=== PATIENT | male | born 1960 | race Caucasian/White ===

== ENCOUNTER 2018-12-17 16:03 | Inpatient (IN) ==
[2018-12-17] MEDS ORDERED: Fluticasone Propionate Nasal 50 MCG/SPRAY BOTTLE NS PRN (16:19)
[2018-12-17] MEDS ORDERED: Nitroglycerin 0.4 MG TAB.SUBL SL PRN (16:19)
[2018-12-17] MEDS ORDERED: NON-FORMULARY MEDICATION 1 EACH EACH (Naproxen Sodium [Aleve] 220 MG) PO PRN (16:19)
[2018-12-17] MEDS ORDERED: Dextrose Gel 15 GM/37.5 ML TUBE PO PRN ×2 (16:42)
[2018-12-17] MEDS ORDERED: D5% in Water 1,000 ML IVC PRN (16:42)
[2018-12-17] MEDS ORDERED: *HR* Dextrose 50 % in Water (Syg) 50 ML SYRINGE IVP PRN (16:42)
[2018-12-17] MEDS ORDERED: Insulin LISPRO 300 UNITS/3 ML VIAL SQ SCH (17:00)
[2018-12-17] MEDS: Furosemide 40 MG TABLET PO SCH (17:47)
[2018-12-17] MEDS: *HR* Metformin 500 MG TABLET PO SCH (17:47)
[2018-12-17] MEDS: Melatonin 3 MG TABLET PO SCH (20:39)
[2018-12-17] MEDS: Apixaban 5 MG TABLET PO SCH (20:39)
[2018-12-17] MEDS: Niacin (24 HR) 500 MG TAB.ER.24H PO SCH (20:39)
[2018-12-17] MEDS: Magnesium Oxide 400 MG TABLET PO SCH (20:39)
[2018-12-17] MEDS: Gabapentin 300 MG CAPSULE PO SCH (20:40)
[2018-12-17] MEDS: Insulin LISPRO 300 UNITS/3 ML VIAL SQ SCH (20:41)
[2018-12-17] MEDS: Silver Sulfadiazine 50 GM TUBE TP SCH (20:42)
[2018-12-17] MEDS ORDERED: Insulin DETEMIR 100 UNIT/ML per UNIT SQ ONE (20:47)
[2018-12-17] MEDS: Insulin DETEMIR 100 UNIT/ML X5UNITS SQ SCH (20:49)
[2018-12-17] MEDS ORDERED: INSULIN DETEMIR 70 UNIT SQ SCH (21:00)
[2018-12-17] MEDS ORDERED: NON-FORMULARY MEDICATION 1 EACH EACH (Omega-3 Acid Ethyl Esters [Lovaza] 2 GM) PO SCH (21:00)
[2018-12-17] MEDS ORDERED: INSULIN DETEMIR 35 UNIT SQ SCH (21:00)
[2018-12-17] MEDS: Budesonide/Formoterol 80/4.5 MDI IH SCH (21:55)
[2018-12-18 06:43] LABS: Basophils % 0.2 %; Eosinophils # 0.2 K/mcL (0.0-0.6); Eosinophils % 1.6 %; Hematocrit 43.8 % (37.5-50.1); Hemoglobin 14.6 g/dL (12.9-16.9); Lymphocytes # 2.8 K/mcL (0.6-4.6); Mean Corpuscular HGB Conc 33.3 g/dL (31.6-35.5); Mean Corpuscular Hemoglobin 29.9 pg (28.0-33.3); Mean Corpuscular Volume 89.8 fL (83.0-100.0); Mean Platelet Volume 11.5 fL (9.4-12.4); Monocytes # 0.9 K/mcL (0.0-1.3); Monocytes % 7.7 %; Platelet Count 224 K/mcL (140-400); Red Blood Count 4.88 M/mcL (4.19-5.50); Red Cell Distribution Width 14.4 % (11.5-14.5); Segmented Neutrophils % 66.5 %
[2018-12-18 07:01] LABS: INR 1.3; Prothrombin Time 14.1 Seconds (9.4-12.1)
[2018-12-18 07:09] LABS: BUN/Creatinine Ratio 40 (6-26); Blood Urea Nitrogen 36 mg/dL (6-20); Calcium 9.4 mg/dL (8.6-10.3); Carbon Dioxide 26 mEq/L (23-29); Chloride 101 mEq/L (98-107); Glucose 136 mg/dL (70-105); Osmolality,Calculated 294 (280-300); Potassium 3.2 mEq/L (3.5-5.1); Sodium 137 mEq/L (136-145); eGFR For Non-African Americans > 60 (> 60)
[2018-12-18 07:21] LABS: Neutrophils # 8.1 K/mcL (1.6-8.9)
[2018-12-18] MEDS: Insulin DETEMIR 100 UNIT/ML X5UNITS SQ SCH ×2 (08:53→21:04)
[2018-12-18] MEDS: Cyanocobalamin (B-12) 1,000 MCG TABLET PO SCH (08:55)
[2018-12-18] MEDS: Lisinopril 20 MG TABLET PO SCH (08:55)
[2018-12-18] MEDS: Magnesium Oxide 400 MG TABLET PO SCH ×2 (08:56→20:35)
[2018-12-18] MEDS: Aspirin Enteric Coated 81 MG Tablet PO SCH (08:56)
[2018-12-18] MEDS: Gabapentin 300 MG CAPSULE PO SCH ×3 (08:56→20:35)
[2018-12-18] MEDS: *HR* Metformin 500 MG TABLET PO SCH ×2 (08:56→17:15)
[2018-12-18] MEDS: Apixaban 5 MG TABLET PO SCH ×2 (08:56→20:35)
[2018-12-18] MEDS: Furosemide 40 MG TABLET PO SCH ×2 (08:56→17:16)
[2018-12-18] MEDS: (Canagliflozin [Invokana] 300 MG) PO SCH (08:57)
[2018-12-18] MEDS: Silver Sulfadiazine 50 GM TUBE TP SCH ×2 (08:57→21:39)
[2018-12-18] MEDS: Insulin LISPRO 300 UNITS/3 ML VIAL SQ SCH ×4 (08:57→21:05)
[2018-12-18] MEDS ORDERED: hydroCHLOROthiazide 25 MG TABLET PO SCH (09:00)
[2018-12-18] MEDS ORDERED: Apixaban 5 MG TABLET PO SCH (09:00)
[2018-12-18] MEDS ORDERED: NON-FORMULARY MEDICATION 1 EACH EACH (Umeclidinium Bromide [Incruse Ellipta] 1 PUFF) IH SCH (09:00)
[2018-12-18] MEDS ORDERED: predniSONE 20 MG TABLET PO SCH (09:00)
[2018-12-18] MEDS: Budesonide/Formoterol 80/4.5 MDI IH SCH ×2 (09:08→21:29)
--- NOTE | 2018-12-18 12:39 | Internal Med History&Physical ---
Date of Encounter: 12/18/18 Time of Encounter: 12:00 Assessment and Plan (1) Community acquired pneumonia Current visit: No Status: Acute Not presently on antibiotics. WBC today slightly elevated at 12.1. No left shift is seen. Will monitor labs and vitals. Qualifiers: Laterality: right Lung location: lower lobe of lung Qualified Code(s): J18.1 - Lobar pneumonia, unspecified organism (2) CVA (cerebral vascular accident) Current visit: No Status: Acute Multifocal on MRI of brain. Head CTA 12/14/2018 was unremarkable. Continue Eliquis, aspirin, Lipitor and Plavix. PT and OT evaluations have been ordered. Qualifiers: CVA mechanism: unspecified Qualified Code(s): I63.9 - Cerebral infarction, unspecified (3) Diabetes mellitus Current visit: No Status: Chronic Hemoglobin A1c was 9.7% on 12/14/2018. Continue Levemir, Glucophage, and Accu- Cheks with SSI. Qualifiers: Diabetes mellitus type: type 2 Diabetes mellitus medical terminologist insulin use: with medical terminologist use Diabetes mellitus complication status: with unspecified complications Qualified Code(s): E11.8 - Type 2 diabetes mellitus with unspecified complications; Z79.4 - intermodal dispatcher (current) use of insulin (4) NORA (obstructive sleep apnea) Current visit: No Status: Chronic Continue CPAP at bedtime (5) PAF (paroxysmal atrial fibrillation) Current visit: No Status: Chronic Continue Eliquis and Lopressor. (6) Hypertension Current visit: No Status: Chronic Continue HCTZ but decrease dose to avoid worsening azotemia and hypokalemia. Continue lisinopril and Lopressor. Qualifiers: Hypertension type: essential hypertension Qualified Code(s): I10 - Essential (primary) hypertension (7) Hypokalemia Current visit: No Status: Acute Decrease HCTZ and give supplemental potassium. (8) Weakness Current visit: No Status: Acute PT and OT evaluations have been ordered. (9) Chronic diastolic (congestive) heart failure Current visit: No Status: Acute Continue Lasix, lisinopril, and Lopressor. Internal Medicine - H&P: HPI Chief complaint: Pneumonia, stroke Admitted From: Emergency Dept Plans for Post Hospital Care: Home History of present illness: Mr. Hoyt is a 58 year old male who was hospitalized at [facility] December 08 with right lung pneumonia and possible small parapneumonic effusion. He was treated during hospitalization with Rocephin and steroids. He was discharged on Levaquin and Zithromax with steroids. He was admitted again at [facility] December 14 after presenting with neurodeficits. Brain MRI showed small acute infarcts in the right cerebellum, right mesial temporal lobe, right hippocampus, right posterior insular cortex, and bilateral periventricular white matter and centrum semiovale. Consideration of embolic etiology was recommended. He was stabilized and discharged to [facility] swing bed for ongoing care needs. He denies documented previous strokes. He states he noticed slight drooling from his left mouth margin approximately 6 months ago. He denies seizures. Cardiovascular history is significant for hypertension and paroxysmal atrial fibrillation. He has been on Eliquis for over 2 years. He had congenital bicuspid aortic valve and underwent bioprosthetic AVR 2010. Heart cath 12/07/2017 showed no CAD. Echocardiogram 12/08/2018 showed LVEF of 60%. Interventricular septum and posterior wall thickness measurements were slightly elevated at 1.20 cm each. The estimated RVSP was elevated at 65 mmHg. There was [id number] aortic regurgitation, unable to determine if valvular or perivalvular. There was mild tricuspid regurgitation. He denies DVT or pulmonary embolus. Respiratory history is significant for having smoked from age [age] up to 3-1/2 packs per day. He reports PFTs done several years ago showed COPD. He uses oxygen at home. He has NORA and uses CPAP at bedtime. He reports spontaneous pneumothorax several years ago requiring surgical intervention. Past Med Surg Social Fam HX - Past Medical History Medical history: atrial fibrillation, CHF, COPD, CVA, diabetes, hyperlipidemia, hypertension, valvular heart disease, other Additional medical history: pneumothorax Psychiatric history: depression - Past Surgical History Surgical History: heart valve replacement, other Additional surgical history: chest tube - Social History Smoking Status: Never smoker Smokeless Tobacco Status: No Alcohol use: heavy Drug use: none - Family History Mother Living Status: Still Living Hx Family Cardiac Disorders: Yes (htn) Hx Family Endocrine Disorder: Yes (DM) Father Hx Family Respiratory Disorders: Yes Hx Family Endocrine Disorder: Yes (DM) Maternal Grandmother Living Status: Hx Family Cardiac Disorders: No Hx Family Cancer: No Hx Family Endocrine Disorder: Yes (DM) Internal Medicine - H&P: Meds Nitroglycerin [Nitrostat] 0.4 mg SL Q5M PRN 09/23/16 [History] Canagliflozin [Invokana] 300 mg PO DAILY #30 tablet 12/10/17 [Rx] Cyanocobalamin (Vitamin B-12) [Vitamin B12] 1,000 mcg PO DAILY #30 tablet 12/10/17 [Rx] Dulaglutide [Trulicity] 0.75 mg SQ MO #1 pen.injctr 12/10/17 [Rx] Fluticasone Propionate Nasal [Flonase] 1 spray NS DAILY PRN #1 bottle 12/10/17 [Rx] Furosemide [Lasix] 40 mg PO BID #60 tablet 12/10/17 [Rx] Lisinopril [Zestril] 20 mg PO DAILY #30 tablet 12/10/17 [Rx] Magnesium Oxide [Magnesium] 400 mg PO BID #60 tablet 12/10/17 [Rx] Metoprolol [Lopressor] 50 mg PO BID #60 tablet 12/10/17 [Rx] Niacin (24 HR) [Niaspan] 500 mg PO HS #30 tab.er.24h 12/10/17 [Rx] Chrisman-3 Acid Ethyl Esters [Lovaza] 2 gm PO BID #120 capsule 12/10/17 [Rx] Tamsulosin [Flomax] 0.4 mg PO BID #30 capsule 12/10/17 [Rx] Insulin ASPART [Novolog Flexpen] 20 unit SQ TIDWM MDD plus sliding scale ( max 65u) 02/25/18 [History] Acetaminophen [Tylenol] 1,000 mg PO HS PRN 12/08/18 [History] Albuterol Sulfate [Ventolin Hfa] 2 puff IH Q4H PRN 12/08/18 [History] Aspirin [Lo-Dose Aspirin EC] 81 mg PO DAILY 12/08/18 [History] Gabapentin [Neurontin] 300 mg PO TID 12/08/18 [History] Melatonin [Melatin] 6 mg PO HS 12/08/18 [History] Umeclidinium Howell [Incruse Ellipta] 1 puff IH DAILY 12/08/18 [History] PredniSONE [Deltasone] 40 mg PO DAILY #1 tablet 12/12/18 [Rx] Apixaban [Eliquis] 5 mg PO DAILY 12/15/18 [History] Clopidogrel [Plavix] 75 mg PO DAILY 12/15/18 [History] Duloxetine HCl 40 mg PO DAILY 12/15/18 [History] Fluticasone/Salmeterol [Advair 250-50 Diskus] 1 puff PO BID 12/15/18 [History] Gemfibrozil [Lopid] 600 mg PO BID 12/15/18 [History] Metformin HCl 1,000 mg PO BIDWM 12/15/18 [History] Naproxen Sodium [Aleve] 220 mg PO Q12H PRN 12/15/18 [History] Omeprazole [PriLOSEC] 40 mg PO DAILY 12/15/18 [History] Polyethylene Glycol 3350 17 gm PO DAILY PRN 12/15/18 [History] Potassium Chloride [Klor-Con 10] 10 meq PO DAILY 12/15/18 [History] Silver Sulfadiazine 1 appl TP BID 12/15/18 [History] Atorvastatin [Lipitor] 40 mg PO HS tablet 12/17/18 [Rx] Insulin DETEMIR [Levemir Flextouch] 70 unit SQ BID #0 12/17/18 [Rx] hydroCHLOROthiazide [Hydrochlorothiazide] 25 mg PO DAILY tablet 12/17/18 [Rx] Allergy/AdvReac Type Severity Reaction Status Date / Time No Known Allergies Allergy Verified 12/08/18 14:58 All Systems PM: A 10-system review of systems was performed and is negative for pertinent findings except as documented above in the HPI. Review of systems: Gen.: His weight has been stable at approximately 89 kg since January 2018 [facility]. He reports he lost 100 pounds in the past 3 years. Cardiovascular: As per history of present illness Respiratory: As per history of present illness GI: He has GERD. He denies disorders of his liver gallbladder or exocrine pancreas : He has BPH. He denies disorders of his kidney or bladder otherwise Neurologic: As per history of present illness Endocrine: He was diagnosed with DM 2 approximately 2001. Hemoglobin A1c was 9.7% on 12/14/2018. He denies known thyroid disease. He has hyperlipidemia. Hematology/oncology: He denies blood disorders cancers or anemia Psychiatric: He has depression but denies anxiety or other mental health issues. [place] skeletal: He has DJD but denies gout or other bone joint or muscle disorders. - Constitutional Vitals: Temp Pulse Resp BP Pulse Ox 97.4 F L 64 18 127/53 97 12/18/18 06:58 12/18/18 06:58 12/18/18 09:09 12/18/18 06:58 12/18/18 09:09 Exam: Gen.: He is a well-developed well-nourished male sitting comfortably on the side of bed who appears in no acute distress HEENT: Head is atraumatic and normal cephalic. Eyes: EOMI. There is no scleral icterus. Mouth: Mucosa is moist. Neck: Supple and nontender. There is no thyromegaly or adenopathy noted. Heart: Regular without murmurs gallops or ectopics Lungs: No wheezes or crackles are heard. Abdomen: Soft and nontender. No masses or guarding are noted. Extremities: He has chronic venous stasis pigmentation changes of his lower legs bilaterally. Dorsalis pedis and posttibial pulses are trace palpable bilaterally. There is no cyanosis edema or clubbing noted. Neurologic: Mental status: He is talkative and a fair to good historian. He does not remember some details of his past history. Cranial nerves: Smile is symmetric. Forehead wrinkles bilaterally. Tongue protrudes midline. EOMI. Motor: There is no pronator drift. Cerebellar: Finger to nose is intact bilaterally. Skin: Warm and dry Internal Med - H&P Results - Labs CBC & Chem 7: 12/18/18 06:00 12/18/18 06:00 Labs: Short CBC 12/18/18 Range/Units 06:00 WBC 12.1 H (4.3-11.1) K/mcL Hgb 14.6 (12.9-16.9) g/dL Hct 43.8 (37.5-50.1) % Plt Count 224 (140-400) K/mcL Neutrophils # 8.1 (1.6-8.9) K/mcL BMP 12/18/18 06:00 Sodium 137 Potassium 3.2 L Chloride 101 Carbon Dioxide 26 BUN 36 H Creatinine 0.90 Glucose 136 H Calcium 9.4
[2018-12-18] MEDS: Melatonin 3 MG TABLET PO SCH (20:36)
[2018-12-18] MEDS: Niacin (24 HR) 500 MG TAB.ER.24H PO SCH (21:04)
[2018-12-19 05:44] LABS: Basophils # 0.1 K/mcL (0.0-0.2); Basophils % 0.4 %; Eosinophils % 1.8 %; Hematocrit 43.6 % (37.5-50.1); Hemoglobin 14.7 g/dL (12.9-16.9); Lymphocytes # 2.7 K/mcL (0.6-4.6); Lymphocytes % 19.7 %; Mean Corpuscular HGB Conc 33.7 g/dL (31.6-35.5); Mean Corpuscular Hemoglobin 30.1 pg (28.0-33.3); Mean Corpuscular Volume 89.3 fL (83.0-100.0); Mean Platelet Volume 11.1 fL (9.4-12.4); Monocytes % 6.9 %; Neutrophils # 9.6 K/mcL (1.6-8.9); Platelet Count 223 K/mcL (140-400); Red Blood Count 4.88 M/mcL (4.19-5.50); Segmented Neutrophils % 70.2 %
[2018-12-19 05:50] LABS: Eosinophils # 0.3 K/mcL (0.0-0.6)
[2018-12-19 06:04] LABS: BUN/Creatinine Ratio 46 (6-26); Blood Urea Nitrogen 39 mg/dL (6-20); Calcium 9.3 mg/dL (8.6-10.3); Carbon Dioxide 25 mEq/L (23-29); Chloride 101 mEq/L (98-107); Chol/HDL Ratio 3.3 (0-4.9); Cholesterol 127 mg/dL (< 200); Glucose 150 mg/dL (70-105); HDL Cholesterol 38 mg/dL (40-59); LDL Cholesterol,Calculated 55 mg/dL (0-99); Osmolality,Calculated 294 (280-300); Potassium 3.7 mEq/L (3.5-5.1); Sodium 136 mEq/L (136-145); Triglycerides 169 mg/dL (< 150); eGFR For Non-African Americans > 60 (> 60)
[2018-12-19] MEDS: Gabapentin 300 MG CAPSULE PO SCH ×3 (08:19→21:39)
[2018-12-19] MEDS: Lisinopril 20 MG TABLET PO SCH (08:19)
[2018-12-19] MEDS: Cyanocobalamin (B-12) 1,000 MCG TABLET PO SCH (08:19)
[2018-12-19] MEDS: hydroCHLOROthiazide 25 MG TABLET PO SCH (08:19)
[2018-12-19] MEDS: Apixaban 5 MG TABLET PO SCH ×2 (08:20→21:39)
[2018-12-19] MEDS: predniSONE 20 MG TABLET PO SCH (08:20)
[2018-12-19] MEDS: Magnesium Oxide 400 MG TABLET PO SCH ×2 (08:20→21:39)
[2018-12-19] MEDS: Aspirin Enteric Coated 81 MG Tablet PO SCH (08:20)
[2018-12-19] MEDS: *HR* Metformin 500 MG TABLET PO SCH ×2 (08:20→17:21)
[2018-12-19] MEDS: Furosemide 40 MG TABLET PO SCH (08:20)
[2018-12-19] MEDS: (Canagliflozin [Invokana] 300 MG) PO SCH (08:21)
[2018-12-19] MEDS: Insulin LISPRO 300 UNITS/3 ML VIAL SQ SCH ×4 (08:21→20:52)
[2018-12-19] MEDS: Silver Sulfadiazine 50 GM TUBE TP SCH ×2 (08:22→21:42)
[2018-12-19] MEDS ORDERED: *HR* Dextrose 50 % in Water (Vial) 50 ML VIAL IVP PRN (08:45)
[2018-12-19] MEDS: Insulin DETEMIR 100 UNIT/ML X5UNITS SQ SCH ×2 (08:46→21:41)
[2018-12-19] MEDS: Budesonide/Formoterol 80/4.5 MDI IH SCH ×2 (09:44→21:34)
--- NOTE | 2018-12-19 12:40 | Internal Med Progress Note ---
Date of Encounter: 12/19/18 Time of Encounter: 12:33 - Assessment and plan (1) Community acquired pneumonia Current Visit: No Status: Acute Assessment and plan: December 19. WBC minimally increased to 13.7 with no left shift seen. Remains afebrile. Continue to monitor. Qualifiers: Laterality: right Lung location: lower lobe of lung Qualified Code(s): J18.1 - Lobar pneumonia, unspecified organism (2) CVA (cerebral vascular accident) Current Visit: No Status: Acute Assessment and plan: December 19. Continue Eliquis, aspirin, Plavix, and Lipitor with PT and OT. Qualifiers: CVA mechanism: unspecified Qualified Code(s): I63.9 - Cerebral infarction, unspecified (3) Diabetes mellitus Current Visit: No Status: Chronic Assessment and plan: December 19. Hemoglobin A1c was 9.7% on 12/14/2018. Continue Levemir, Glucophage, and Accu-Cheks with SSI. 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 Continue CPAP at bedtime (5) PAF (paroxysmal atrial fibrillation) Current Visit: No Status: Chronic Assessment and plan: December 19. Continue Eliquis and Lopressor (6) Hypertension Current Visit: No Status: Chronic Assessment and plan: December 19. Continue lisinopril and Lopressor and lower dose HCTZ. Will reduce Lasix to 40 mg daily to avoid worsening azotemia. Qualifiers: Hypertension type: essential hypertension Qualified Code(s): I10 - Essential (primary) hypertension (7) Hypokalemia Current Visit: No Status: Acute Assessment and plan: December 19. Reduce Lasix as above. Continue lower dose HCTZ. Continue supplemental potassium. (8) Weakness Current Visit: No Status: Acute Assessment and plan: December 19. Continue PT and OT intervention (9) Chronic diastolic (congestive) heart failure Current Visit: No Status: Acute Assessment and plan: December 19. Continue lisinopril, Lopressor, HCTZ, and reduced dose Lasix. - Subjective Interval history: December 19. He has no new complaints and feels well. - Constitutional Vitals: Temp Pulse Resp BP Pulse Ox 97.4 F L 67 12 144/61 96 12/19/18 07:27 12/19/18 07:27 12/19/18 09:44 12/19/18 07:27 12/19/18 09:44 Exam: He is sitting in a chair at bedside resting comfortably. His affect is bright and cheerful. He is in no respiratory distress. I reviewed his medications and lab results. Internal Medicine: Result - Labs CBC & Chem 7: 12/19/18 05:20 12/19/18 05:20 Labs: Short CBC 12/19/18 Range/Units 05:20 WBC 13.7 H (4.3-11.1) K/mcL Hgb 14.7 (12.9-16.9) g/dL Hct 43.6 (37.5-50.1) % Plt Count 223 (140-400) K/mcL Neutrophils # 9.6 H (1.6-8.9) K/mcL BMP 12/19/18 05:20 Sodium 136 Potassium 3.7 Chloride 101 Carbon Dioxide 25 BUN 39 H Creatinine 0.85 Glucose 150 H Calcium 9.3 - ABG Interpretation ABG results: PT/INR, D-dimer PT 14.1 Seconds (9.4-12.1) H 12/18/18 06:00 Consult Discharge Plan - Plan Referrals: Korin Humphrey MD [Primary Care Provider] - 1 week
[2018-12-19] MEDS ORDERED: (Dulaglutide [Trulicity] 0.75 MG) SQ SCH (16:19)
[2018-12-19] MEDS: Niacin (24 HR) 500 MG TAB.ER.24H PO SCH (21:39)
[2018-12-19] MEDS: Melatonin 3 MG TABLET PO SCH (21:40)
[2018-12-20] MEDS: Insulin LISPRO 300 UNITS/3 ML VIAL SQ SCH ×4 (08:03→19:55)
[2018-12-20] MEDS: Gabapentin 300 MG CAPSULE PO SCH ×3 (08:26→19:54)
[2018-12-20] MEDS: Magnesium Oxide 400 MG TABLET PO SCH ×2 (08:26→19:54)
[2018-12-20] MEDS: *HR* Metformin 500 MG TABLET PO SCH ×2 (08:26→16:34)
[2018-12-20] MEDS: Cyanocobalamin (B-12) 1,000 MCG TABLET PO SCH (08:26)
[2018-12-20] MEDS: hydroCHLOROthiazide 25 MG TABLET PO SCH (08:27)
[2018-12-20] MEDS: Lisinopril 20 MG TABLET PO SCH (08:27)
[2018-12-20] MEDS: Apixaban 5 MG TABLET PO SCH ×2 (08:27→19:54)
[2018-12-20] MEDS: Aspirin Enteric Coated 81 MG Tablet PO SCH (08:27)
[2018-12-20] MEDS: Furosemide 40 MG TABLET PO SCH (08:27)
[2018-12-20] MEDS: predniSONE 20 MG TABLET PO SCH (08:27)
[2018-12-20] MEDS: Silver Sulfadiazine 50 GM TUBE TP SCH ×2 (08:28→19:55)
[2018-12-20] MEDS: (Canagliflozin [Invokana] 300 MG) PO SCH (08:31)
[2018-12-20] MEDS: Insulin DETEMIR 100 UNIT/ML X5UNITS SQ SCH ×2 (08:33→19:55)
[2018-12-20] MEDS: Budesonide/Formoterol 80/4.5 MDI IH SCH ×2 (10:45→21:30)
[2018-12-20] MEDS: Niacin (24 HR) 500 MG TAB.ER.24H PO SCH (19:54)
[2018-12-20] MEDS: Melatonin 3 MG TABLET PO SCH (19:54)
[2018-12-21 05:36] LABS: Basophils # 0.1 K/mcL (0.0-0.2); Basophils % 0.6 %; Eosinophils # 0.3 K/mcL (0.0-0.6); Eosinophils % 1.8 %; Hematocrit 45.4 % (37.5-50.1); Hemoglobin 15.4 g/dL (12.9-16.9); Immature Granulocytes % 2.1 % (0-4); Lymphocytes # 3.4 K/mcL (0.6-4.6); Lymphocytes % 23.8 %; Mean Corpuscular HGB Conc 33.9 g/dL (31.6-35.5); Mean Corpuscular Hemoglobin 30.4 pg (28.0-33.3); Mean Corpuscular Volume 89.5 fL (83.0-100.0); Mean Platelet Volume 11.5 fL (9.4-12.4); Monocytes # 0.8 K/mcL (0.0-1.3); Monocytes % 5.6 %; Neutrophils # 9.3 K/mcL (1.6-8.9); Platelet Count 233 K/mcL (140-400); Red Blood Count 5.07 M/mcL (4.19-5.50); Segmented Neutrophils % 66.1 %
[2018-12-21 05:57] LABS: BUN/Creatinine Ratio 59 (6-26); Blood Urea Nitrogen 50 mg/dL (6-20); Calcium 9.7 mg/dL (8.6-10.3); Carbon Dioxide 27 mEq/L (23-29); Chloride 99 mEq/L (98-107); Glucose 120 mg/dL (70-105); Osmolality,Calculated 291 (280-300); Potassium 3.8 mEq/L (3.5-5.1); Sodium 133 mEq/L (136-145); eGFR For Non-African Americans > 60 (> 60)
[2018-12-21] MEDS: Insulin LISPRO 300 UNITS/3 ML VIAL SQ SCH ×4 (07:19→21:03)
[2018-12-21] MEDS: Cyanocobalamin (B-12) 1,000 MCG TABLET PO SCH (08:14)
[2018-12-21] MEDS: Magnesium Oxide 400 MG TABLET PO SCH ×2 (08:14→21:03)
[2018-12-21] MEDS: Apixaban 5 MG TABLET PO SCH ×2 (08:14→21:02)
[2018-12-21] MEDS: *HR* Metformin 500 MG TABLET PO SCH ×2 (08:14→17:03)
[2018-12-21] MEDS: Silver Sulfadiazine 50 GM TUBE TP SCH ×2 (08:15→21:03)
[2018-12-21] MEDS: Lisinopril 20 MG TABLET PO SCH (08:15)
[2018-12-21] MEDS: Aspirin Enteric Coated 81 MG Tablet PO SCH (08:15)
[2018-12-21] MEDS: Gabapentin 300 MG CAPSULE PO SCH ×3 (08:15→21:02)
[2018-12-21] MEDS: hydroCHLOROthiazide 25 MG TABLET PO SCH (08:15)
[2018-12-21] MEDS: predniSONE 20 MG TABLET PO SCH (08:15)
[2018-12-21] MEDS: Furosemide 40 MG TABLET PO SCH (08:15)
[2018-12-21] MEDS: (Canagliflozin [Invokana] 300 MG) PO SCH (08:16)
[2018-12-21] MEDS: Insulin DETEMIR 100 UNIT/ML X5UNITS SQ SCH ×2 (08:20→21:03)
[2018-12-21] MEDS: Budesonide/Formoterol 80/4.5 MDI IH SCH ×2 (09:00→22:35)
--- NOTE | 2018-12-21 12:03 | Internal Med Progress Note ---
Date of Encounter: 12/21/18 Time of Encounter: 11:55 - Assessment and plan (1) Community acquired pneumonia Current Visit: No Status: Acute Assessment and plan: December 19. WBC minimally increased to 13.7 with no left shift seen. Remains afebrile. Continue to monitor. December 21. WBC increased slightly to 14.1 without left shift seen. He remains afebrile. Continue to monitor. Qualifiers: Laterality: right Lung location: lower lobe of lung Qualified Code(s): J18.1 - Lobar pneumonia, unspecified organism (2) CVA (cerebral vascular accident) Current Visit: No Status: Acute Assessment and plan: December 19. Continue Eliquis, aspirin, Plavix, and Lipitor with PT and OT. December 21. Continue present Rx. Anticipate discharge home tomorrow. Qualifiers: CVA mechanism: unspecified Qualified Code(s): I63.9 - Cerebral infarction, unspecified (3) Diabetes mellitus Current Visit: No Status: Chronic Assessment and plan: December 19. Hemoglobin A1c was 9.7% on 12/14/2018. Continue Levemir, Glucophage, and Accu-Cheks with SSI. Qualifiers: Diabetes mellitus type: type 2 Diabetes mellitus usp insulin use: with usp use Diabetes mellitus complication status: with unspecified complications Qualified Code(s): E11.8 - Type 2 diabetes mellitus with unspecified complications; Z79.4 - nursing home (current) use of insulin (4) NORA (obstructive sleep apnea) Current Visit: No Status: Chronic Assessment and plan: December 19. Continue CPAP at bedtime (5) PAF (paroxysmal atrial fibrillation) Current Visit: No Status: Chronic Assessment and plan: December 19. Continue Eliquis and Lopressor (6) Hypertension Current Visit: No Status: Chronic Assessment and plan: December 19. Continue lisinopril and Lopressor and lower dose HCTZ. Will reduce Lasix to 40 mg daily to avoid worsening azotemia. December 21. Blood pressure satisfactory. Continue lisinopril, Lopressor, and lower dose HCTZ and Lasix. Qualifiers: Hypertension type: essential hypertension Qualified Code(s): I10 - Essential (primary) hypertension (7) Hypokalemia Current Visit: No Status: Acute Assessment and plan: December 19. Reduce Lasix as above. Continue lower dose HCTZ. Continue walton pplemental potassium. December 21. Potassium now normal. Continue present Rx. (8) Weakness Current Visit: No Status: Acute Assessment and plan: December 19. Continue PT and OT intervention (9) Chronic diastolic (congestive) heart failure Current Visit: No Status: Acute Assessment and plan: December 19. Continue lisinopril, Lopressor, HCTZ, and reduced dose Lasix. - Subjective Interval history: December 19. He has no new complaints and feels well. December 21. He has no new complaints and feels better. - Constitutional Vitals: Temp Pulse Resp BP Pulse Ox 97.4 F L 69 18 139/65 97 12/21/18 06:47 12/21/18 06:47 12/21/18 09:01 12/21/18 06:47 12/21/18 09:01 Exam: He is sitting comfortably in a chair at bedside and appears in no acute distress. His affect is bright and cheerful. I reviewed his medications and lab results. Internal Medicine: Result - Labs CBC & Chem 7: 12/21/18 05:28 12/21/18 05:28 Labs: Short CBC 12/21/18 Range/Units 05:28 WBC 14.1 H (4.3-11.1) K/mcL Hgb 15.4 (12.9-16.9) g/dL Hct 45.4 (37.5-50.1) % Plt Count 233 (140-400) K/mcL Neutrophils # 9.3 H (1.6-8.9) K/mcL BMP 12/21/18 05:28 Sodium 133 L Potassium 3.8 Chloride 99 Carbon Dioxide 27 BUN 50 H Creatinine 0.85 Glucose 120 H Calcium 9.7 - ABG Interpretation ABG results: PT/INR, D-dimer PT 14.1 Seconds (9.4-12.1) H 12/18/18 06:00 Consult Discharge Plan - Plan Referrals: Korin Humphrey MD [Primary Care Provider] - 1 week
[2018-12-21] MEDS: Niacin (24 HR) 500 MG TAB.ER.24H PO SCH (21:02)
[2018-12-21] MEDS: Melatonin 3 MG TABLET PO SCH (21:03)
[2018-12-22 07:15] VITALS: BP 136/53
[2018-12-22] MEDS: Insulin LISPRO 300 UNITS/3 ML VIAL SQ SCH (07:55)
[2018-12-22] MEDS: Aspirin Enteric Coated 81 MG Tablet PO SCH (07:56)
[2018-12-22] MEDS: Apixaban 5 MG TABLET PO SCH (07:56)
[2018-12-22] MEDS: Gabapentin 300 MG CAPSULE PO SCH (07:56)
[2018-12-22] MEDS: Cyanocobalamin (B-12) 1,000 MCG TABLET PO SCH (07:57)
[2018-12-22] MEDS: *HR* Metformin 500 MG TABLET PO SCH (07:57)
[2018-12-22] MEDS: Lisinopril 20 MG TABLET PO SCH (07:57)
[2018-12-22] MEDS: hydroCHLOROthiazide 25 MG TABLET PO SCH (07:57)
[2018-12-22] MEDS: Magnesium Oxide 400 MG TABLET PO SCH (07:57)
[2018-12-22] MEDS: Furosemide 40 MG TABLET PO SCH (07:58)
[2018-12-22] MEDS: predniSONE 20 MG TABLET PO SCH (07:58)
[2018-12-22] MEDS: Budesonide/Formoterol 80/4.5 MDI IH SCH (09:08)
[2018-12-22] MEDS: (Canagliflozin [Invokana] 300 MG) PO SCH (09:42)
[2018-12-22] MEDS: Silver Sulfadiazine 50 GM TUBE TP SCH (09:42)
--- NOTE | 2018-12-22 09:53 | Discharge Summary ---
Date of Encounter: 12/22/18 Time of Encounter: 09:43 - Discharge Diagnosis (1) Community acquired pneumonia Priority: Primary Status: Resolved Qualifiers: Laterality: right Lung location: lower lobe of lung Qualified Code(s): J18.1 - Lobar pneumonia, unspecified organism (2) CVA (cerebral vascular accident) Priority: Secondary Status: Acute Qualifiers: CVA mechanism: unspecified Qualified Code(s): I63.9 - Cerebral infarction, unspecified (3) Diabetes mellitus Priority: Secondary Status: Chronic Qualifiers: Diabetes mellitus type: type 2 Diabetes mellitus exterminator termite insulin use: with exterminator termite use Diabetes mellitus complication status: with unspecified complications Qualified Code(s): E11.8 - Type 2 diabetes mellitus with unspecified complications; Z79.4 - alf (current) use of insulin (4) NORA (obstructive sleep apnea) Priority: Secondary Status: Chronic (5) PAF (paroxysmal atrial fibrillation) Priority: Secondary Status: Chronic (6) Hypertension Priority: Secondary Status: Chronic Qualifiers: Hypertension type: essential hypertension Qualified Code(s): I10 - Essential (primary) hypertension (7) Hypokalemia Priority: Secondary Status: Acute (8) Weakness Priority: Secondary Status: Acute (9) Chronic diastolic (congestive) heart failure Priority: Secondary Status: Chronic Hospital course: Mr. Hoyt is a 58 year old male who was hospitalized at [facility] December 08 with right lung pneumonia and possible small parapneumonic effusion. He was treated during hospitalization with Rocephin and steroids. He was discharged on Levaqui n and Zithromax with steroids. He was admitted again at [facility] December 14 after presenting with neurodeficits. Brain MRI showed small acute infarcts in the right cerebellum, right mesial temporal lobe, right hippocampus, right posterior insular cortex, and bilateral periventricular white matter and centrum semiovale. Consideration of embolic etiology was recommended. He was stabilized and discharged to [facility] swing bed for ongoing care needs. Initial orders were written by the discharging physicians at [facility]. I saw him on December 18 and performed the swing bed history and physical. He had physical therapy and occupational therapy evaluations with ongoing intervention. He made satisfactory progress. He will continue outpatient PT and ST after discharge. He will continue aspirin, Eliquis, Lipitor, and Plavix. WBC marni slightly to 14.1 on day prior to discharge. There was no left shift and he remained afebrile. Antibiotics were not given. HCTZ and Lasix doses were decreased to avoid worsening azotemia. Additional supplemental potassium was given. These changes will be continued at discharge. His PCP can monitor labs. There were no new problems and on December 22 he was stable for discharge home. He will follow with his PCP Dr. Humphrey within 1 week. - Time Spent with Patient Total time spent providing and/or coordinating discharge services: - Discharge Medications Prescriptions: New Furosemide [Lasix] 40 mg PO DAILY tablet hydroCHLOROthiazide [Hydrochlorothiazide] 12.5 mg PO DAILY tablet Potassium Chloride 10 meq PO BID #60 tab.er.prt Continue Nitroglycerin [Nitrostat] 0.4 mg SL Q5M PRN PRN Reason: Chest Pain Canagliflozin [Invokana] 300 mg PO DAILY #30 tablet Dulaglutide [Trulicity] 0.75 mg SQ MO #1 pen.injctr Fluticasone Propionate Nasal [Flonase] 1 spray NS DAILY PRN #1 bottle PRN Reason: Congestion Lisinopril [Zestril] 20 mg PO DAILY #30 tablet Magnesium Oxide [Magnesium] 400 mg PO BID #60 tablet Metoprolol [Lopressor] 50 mg PO BID #60 tablet Niacin (24 HR) [Niaspan] 500 mg PO HS #30 tab.er.24h Tamsulosin [Flomax] 0.4 mg PO BID #30 capsule [place]-3 Acid Ethyl Esters [Lovaza] 2 gm PO BID #120 capsule Cyanocobalamin (Vitamin B-12) [Vitamin B12] 1,000 mcg PO DAILY #30 tablet Insulin ASPART [Novolog Flexpen] 20 unit SQ TIDWM MDD plus sliding scale ( max 65u) Umeclidinium [place] [Incruse Ellipta] 1 puff IH DAILY Gabapentin [Neurontin] 300 mg PO TID Melatonin [Melatin] 6 mg PO HS Aspirin [Lo-Dose Aspirin EC] 81 mg PO DAILY Acetaminophen [Tylenol] 1,000 mg PO HS PRN PRN Reason: Pain Albuterol Sulfate [Ventolin Hfa] 2 puff IH Q4H PRN PRN Reason: Shortness Of Breath Apixaban [Eliquis] 5 mg PO DAILY Clopidogrel [Plavix] 75 mg PO DAILY Duloxetine HCl 40 mg PO DAILY Fluticasone/Salmeterol [Advair 250-50 Diskus] 1 puff PO BID Gemfibrozil [Lopid] 600 mg PO BID Metformin HCl 1,000 mg PO BIDWM Naproxen Sodium [Aleve] 220 mg PO Q12H PRN PRN Reason: Pain Omeprazole [PriLOSEC] 40 mg PO DAILY Polyethylene Glycol 3350 17 gm PO DAILY PRN PRN Reason: Constipation Silver Sulfadiazine 1 appl TP BID Atorvastatin [Lipitor] 40 mg PO HS tablet Insulin DETEMIR [Levemir Flextouch] 70 unit SQ BID #0 Discontinued Furosemide [Lasix] 40 mg PO BID #60 tablet PredniSONE [Deltasone] 40 mg PO DAILY #1 tablet Potassium Chloride [Klor-Con 10] 10 meq PO DAILY hydroCHLOROthiazide [Hydrochlorothiazide] 25 mg PO DAILY tablet Home Medications: Nitroglycerin [Nitrostat] 0.4 mg SL Q5M PRN 09/23/16 [History] Canagliflozin [Invokana] 300 mg PO DAILY #30 tablet 12/10/17 [Rx] Cyanocobalamin (Vitamin B-12) [Vitamin B12] 1,000 mcg PO DAILY #30 tablet 12/10/17 [Rx] Dulaglutide [Trulicity] 0.75 mg SQ MO #1 pen.injctr 12/10/17 [Rx] Fluticasone Propionate Nasal [Flonase] 1 spray NS DAILY PRN #1 bottle 12/10/17 [Rx] Lisinopril [Zestril] 20 mg PO DAILY #30 tablet 12/10/17 [Rx] Magnesium Oxide [Magnesium] 400 mg PO BID #60 tablet 12/10/17 [Rx] Metoprolol [Lopressor] 50 mg PO BID #60 tablet 12/10/17 [Rx] Niacin (24 HR) [Niaspan] 500 mg PO HS #30 tab.er.24h 12/10/17 [Rx] [place]-3 Acid Ethyl Esters [Lovaza] 2 gm PO BID #120 capsule 12/10/17 [Rx] Tamsulosin [Flomax] 0.4 mg PO BID #30 capsule 12/10/17 [Rx] Insulin ASPART [Novolog Flexpen] 20 unit SQ TIDWM MDD plus sliding scale ( max 65u) 02/25/18 [History] Acetaminophen [Tylenol] 1,000 mg PO HS PRN 12/08/18 [History] Albuterol Sulfate [Ventolin Hfa] 2 puff IH Q4H PRN 12/08/18 [History] Aspirin [Lo-Dose Aspirin EC] 81 mg PO DAILY 12/08/18 [History] Gabapentin [Neurontin] 300 mg PO TID 12/08/18 [History] Melatonin [Melatin] 6 mg PO HS 12/08/18 [History] Umeclidinium [place] [Incruse Ellipta] 1 puff IH DAILY 12/08/18 [History] Apixaban [Eliquis] 5 mg PO DAILY 12/15/18 [History] Clopidogrel [Plavix] 75 mg PO DAILY 12/15/18 [History] Duloxetine HCl 40 mg PO DAILY 12/15/18 [History] Fluticasone/Salmeterol [Advair 250-50 Diskus] 1 puff PO BID 12/15/18 [History] Gemfibrozil [Lopid] 600 mg PO BID 12/15/18 [History] Metformin HCl 1,000 mg PO BIDWM 12/15/18 [History] Naproxen Sodium [Aleve] 220 mg PO Q12H PRN 12/15/18 [History] Omeprazole [PriLOSEC] 40 mg PO DAILY 12/15/18 [History] Polyethylene Glycol 3350 17 gm PO DAILY PRN 12/15/18 [History] Silver Sulfadiazine 1 appl TP BID 12/15/18 [History] Atorvastatin [Lipitor] 40 mg PO HS tablet 12/17/18 [Rx] Insulin DETEMIR [Levemir Flextouch] 70 unit SQ BID #0 12/17/18 [Rx] Furosemide [Lasix] 40 mg PO DAILY tablet 12/22/18 [Rx] Potassium Chloride 10 meq PO BID #60 tab.er.prt 12/22/18 [Rx] hydroCHLOROthiazide [Hydrochlorothiazide] 12.5 mg PO DAILY tablet 12/22/18 [Rx] Allergies/Adverse Reactions: Allergy/AdvReac Type Severity Reaction Status Date / Time No Known Allergies Allergy Verified 12/08/18 14:58 Date of admission: 12/17/18 16:22 Primary care physician: Korin Humphrey MD Consults: 12/17/18 16:14 Consult to Occupational Therapy [CONS] Routine Comment: eval, develop, and implement POC Reason for Consult: eval, develop, and implement POC Does patient have active BEDREST order?: No Is patient medically & hemodynamically stable?: Yes Consult to Physical Therapy [CONS] Routine Comment: eval, develop, and implement POC Reason for Consult: eval, develop, and implement POC Does patient have active BEDREST order?: No Is patient medically & hemodynamically stable?: Yes Consult to Board Mill Supervisor [CONS] Routine Reason for SW Consult: may need HH upon discharge 12/19/18 10:37 Consult to Speech Therapy [CONS] Routine Comment: Evaluate, develop and implement POC Reason for Consult: CVA Call Completed: No - Constitutional Vitals: Temp Pulse Resp BP Pulse Ox 97.3 F L 65 18 136/53 97 12/22/18 07:10 12/22/18 07:10 12/22/18 09:08 12/22/18 07:10 12/22/18 09:08 - Patient Status Disposition: Home, Self-Care - Discharge Instructions Follow Up With: Korin Humphrey MD [Primary Care Provider] - 1 week - Diet and Activity Activity: as per physical therapy Diet: diabetic diet
[2018-12-22] MEDS: Insulin DETEMIR 100 UNIT/ML X5UNITS SQ SCH (10:03)
== END 2018-12-22 11:35 | disposition home or self-care (01) | DRG 194 ==
LOC: INPPIK 16:22
PROVIDERS: ADMIT Internal Medicine; ATTEND Internal Medicine

== ENCOUNTER 2019-08-30 13:11 | Inpatient (IN) ==
[2019-09-02] MEDS ORDERED: Nitroglycerin 0.4 MG TAB.SUBL SL PRN (10:05)
[2019-09-02] MEDS ORDERED: Fluticasone Propionate Nasal 50 MCG/SPRAY BOTTLE NS PRN (10:05)
[2019-09-02] MEDS: *HR* Metformin 500 MG TABLET PO SCH (16:01)
[2019-09-02] MEDS ORDERED: NON-FORMULARY MEDICATION 1 EACH EACH (Omega-3 Acid Ethyl Esters [Lovaza] 2 GM) PO SCH (21:00)
[2019-09-02] MEDS ORDERED: Niacin (24 HR) 500 MG TAB.ER.24H PO SCH (21:00)
[2019-09-02] MEDS ORDERED: Insulin DETEMIR 100 UNIT/ML X5UNITS SQ SCH (21:00)
[2019-09-02] MEDS: Magnesium Oxide 400 MG TABLET PO SCH (21:20)
[2019-09-02] MEDS: Gabapentin 300 MG CAPSULE PO SCH (21:20)
[2019-09-02] MEDS: Apixaban 5 MG TABLET PO SCH (21:20)
[2019-09-02] MEDS: Budesonide/Formoterol 80/4.5 1 PUFF INH IH SCH (21:26)
[2019-09-03 06:31] LABS: Basophils % 0.7 %; Eosinophils # 0.2 K/mcL (0.0-0.6); Eosinophils % 3.9 %; Hematocrit 33.1 % (37.5-50.1); Hemoglobin 11.2 g/dL (12.9-16.9); Immature Granulocytes % 0.3 % (0-4); Lymphocytes # 1.7 K/mcL (0.6-4.6); Lymphocytes % 27.4 %; Mean Corpuscular HGB Conc 33.8 g/dL (31.6-35.5); Mean Corpuscular Hemoglobin 30.3 pg (28.0-33.3); Mean Corpuscular Volume 89.5 fL (83.0-100.0); Mean Platelet Volume 11.4 fL (9.4-12.4); Monocytes # 0.4 K/mcL (0.0-1.3); Monocytes % 7.2 %; Neutrophils # 3.7 K/mcL (1.6-8.9); Platelet Count 178 K/mcL (140-400); Red Cell Distribution Width 13.3 % (11.5-14.5); Segmented Neutrophils % 60.5 %; White Blood Count 6.1 K/mcL (4.3-11.1)
[2019-09-03 08:22] LABS: Alanine Aminotransferase 9 Units/L (7-52); Albumin 3.3 g/dL (3.5-5.7); Albumin/Globulin Ratio 1.1 (1.1-2.2); Alkaline Phosphatase 99 Units/L (34-104); Aspartate Amino Transferase 14 Units/L (13-39); BUN/Creatinine Ratio 21 (6-26); Bilirubin,Total 0.4 mg/dL (0.3-1.0); Blood Urea Nitrogen 20 mg/dL (6-20); Calcium 9.3 mg/dL (8.6-10.3); Carbon Dioxide 25 mEq/L (23-29); Chloride 109 mEq/L (98-107); Glucose 162 mg/dL (70-105); Osmolality,Calculated 298 (280-300); Potassium 4.3 mEq/L (3.5-5.1); Sodium 141 mEq/L (136-145); Total Protein 6.3 g/dL (6.4-8.9); eGFR For African Americans > 60 (> 60); eGFR For Non-African Americans > 60 (> 60)
[2019-09-03] MEDS ORDERED: Furosemide 40 MG TABLET PO SCH (09:00)
[2019-09-03] MEDS ORDERED: Aspirin Enteric Coated 81 MG Tablet PO SCH (09:00)
[2019-09-03] MEDS: hydroCHLOROthiazide 25 MG TABLET PO SCH (09:04)
[2019-09-03] MEDS: Apixaban 5 MG TABLET PO SCH ×2 (09:04→20:14)
[2019-09-03] MEDS: Magnesium Oxide 400 MG TABLET PO SCH ×2 (09:05→20:14)
[2019-09-03] MEDS: Lisinopril 20 MG TABLET PO SCH (09:05)
[2019-09-03] MEDS: *HR* Metformin 500 MG TABLET PO SCH ×2 (09:05→17:40)
[2019-09-03] MEDS: Gabapentin 300 MG CAPSULE PO SCH ×2 (09:05→20:14)
[2019-09-03] MEDS: Cyanocobalamin (B-12) 1,000 MCG TABLET PO SCH (09:05)
[2019-09-03] MEDS: Budesonide/Formoterol 80/4.5 1 PUFF INH IH SCH ×2 (11:09→20:38)
[2019-09-03] MEDS: INCRUSE ELLIPTA IH SCH (11:13)
[2019-09-04] MEDS ORDERED: TRULICITY 0.75MG SQ SCH (10:05)
[2019-09-04] MEDS: *HR* Metformin 500 MG TABLET PO SCH ×2 (10:10→17:37)
[2019-09-04] MEDS: Lisinopril 20 MG TABLET PO SCH (10:11)
[2019-09-04] MEDS: Magnesium Oxide 400 MG TABLET PO SCH ×2 (10:11→20:34)
[2019-09-04] MEDS: Cyanocobalamin (B-12) 1,000 MCG TABLET PO SCH (10:11)
[2019-09-04] MEDS: Apixaban 5 MG TABLET PO SCH ×2 (10:11→20:35)
[2019-09-04] MEDS: hydroCHLOROthiazide 25 MG TABLET PO SCH (10:11)
[2019-09-04] MEDS: Gabapentin 300 MG CAPSULE PO SCH ×2 (10:11→20:35)
[2019-09-04] MEDS: Budesonide/Formoterol 80/4.5 1 PUFF INH IH SCH (10:17)
[2019-09-04] MEDS: INCRUSE ELLIPTA IH SCH (10:21)
[2019-09-05] MEDS: Budesonide/Formoterol 80/4.5 1 PUFF INH IH SCH ×3 (00:24→21:32)
[2019-09-05] MEDS: INCRUSE ELLIPTA IH SCH (09:03)
[2019-09-05] MEDS: Apixaban 5 MG TABLET PO SCH ×2 (09:17→20:58)
[2019-09-05] MEDS: Magnesium Oxide 400 MG TABLET PO SCH ×2 (09:17→20:58)
[2019-09-05] MEDS: Gabapentin 300 MG CAPSULE PO SCH ×2 (09:17→20:58)
[2019-09-05] MEDS: Cyanocobalamin (B-12) 1,000 MCG TABLET PO SCH (09:17)
[2019-09-05] MEDS: *HR* Metformin 500 MG TABLET PO SCH ×2 (09:17→17:29)
[2019-09-05] MEDS: Lisinopril 20 MG TABLET PO SCH (09:17)
[2019-09-05] MEDS: hydroCHLOROthiazide 25 MG TABLET PO SCH (09:18)
[2019-09-05] MEDS: Melatonin 3 MG TABLET PO PRN (21:03)
[2019-09-06] MEDS: Magnesium Oxide 400 MG TABLET PO SCH ×2 (08:45→21:43)
[2019-09-06] MEDS: *HR* Metformin 500 MG TABLET PO SCH ×2 (08:45→16:41)
[2019-09-06] MEDS: hydroCHLOROthiazide 25 MG TABLET PO SCH (08:45)
[2019-09-06] MEDS: Lisinopril 20 MG TABLET PO SCH (08:45)
[2019-09-06] MEDS: Gabapentin 300 MG CAPSULE PO SCH ×2 (08:45→21:42)
[2019-09-06] MEDS: Cyanocobalamin (B-12) 1,000 MCG TABLET PO SCH (08:46)
[2019-09-06] MEDS: Apixaban 5 MG TABLET PO SCH ×2 (08:46→21:42)
[2019-09-06] MEDS: Budesonide/Formoterol 80/4.5 1 PUFF INH IH SCH ×2 (09:27→22:26)
[2019-09-06] MEDS: INCRUSE ELLIPTA IH SCH (10:00)
[2019-09-06] MEDS: Melatonin 3 MG TABLET PO PRN (21:43)
[2019-09-07] MEDS: hydroCHLOROthiazide 25 MG TABLET PO SCH (07:50)
[2019-09-07] MEDS: Magnesium Oxide 400 MG TABLET PO SCH ×2 (07:50→21:33)
[2019-09-07] MEDS: Lisinopril 20 MG TABLET PO SCH (07:50)
[2019-09-07] MEDS: Gabapentin 300 MG CAPSULE PO SCH ×2 (07:51→21:33)
[2019-09-07] MEDS: Apixaban 5 MG TABLET PO SCH ×2 (07:51→21:33)
[2019-09-07] MEDS: Cyanocobalamin (B-12) 1,000 MCG TABLET PO SCH (07:51)
[2019-09-07] MEDS: *HR* Metformin 500 MG TABLET PO SCH ×2 (07:51→18:03)
[2019-09-07] MEDS: Budesonide/Formoterol 80/4.5 1 PUFF INH IH SCH ×2 (10:21→20:50)
[2019-09-07] MEDS: INCRUSE ELLIPTA IH SCH (10:27)
[2019-09-07] MEDS: Melatonin 3 MG TABLET PO PRN (21:34)
[2019-09-08 07:02] VITALS: BP 159/69
[2019-09-08] MEDS: hydroCHLOROthiazide 25 MG TABLET PO SCH (09:32)
[2019-09-08] MEDS: Gabapentin 300 MG CAPSULE PO SCH (09:32)
[2019-09-08] MEDS: Lisinopril 20 MG TABLET PO SCH (09:32)
[2019-09-08] MEDS: Magnesium Oxide 400 MG TABLET PO SCH (09:32)
[2019-09-08] MEDS: *HR* Metformin 500 MG TABLET PO SCH (09:32)
[2019-09-08] MEDS: Cyanocobalamin (B-12) 1,000 MCG TABLET PO SCH (09:33)
[2019-09-08] MEDS: Apixaban 5 MG TABLET PO SCH (09:33)
[2019-09-08] MEDS: Budesonide/Formoterol 80/4.5 1 PUFF INH IH SCH (10:40)
[2019-09-08] MEDS: INCRUSE ELLIPTA IH SCH (10:45)
== END 2019-09-08 14:28 | disposition home health service (06) | DRG 57 ==
LOC: INPPIK 09-02 11:45 → SUATTDRO 09-02 11:45
PROVIDERS: ADMIT Nurse Practitioner; ATTEND Family Medicine

== ENCOUNTER 2019-09-19 13:19 | Inpatient (IN) ==
[2019-09-20] MEDS ORDERED: Melatonin 3 MG TABLET PO PRN (14:41)
[2019-09-20] MEDS ORDERED: Nitroglycerin 0.4 MG TAB.SUBL SL PRN (14:41)
[2019-09-20] MEDS ORDERED: Fluticasone Propionate Nasal 50 MCG/SPRAY BOTTLE NS PRN (14:41)
[2019-09-20] MEDS ORDERED: D5% in Water 1,000 ML IVC PRN (15:08)
[2019-09-20] MEDS ORDERED: Dextrose Gel 15 GM/37.5 ML TUBE PO PRN ×2 (15:08)
[2019-09-20] MEDS ORDERED: *HR* Dextrose 50 % in Water (Syg) 50 ML SYRINGE IVP PRN (15:08)
[2019-09-20] MEDS: Insulin LISPRO 300 UNITS/3 ML VIAL SQ SCH ×2 (17:02→20:53)
[2019-09-20] MEDS: *HR* Metformin 500 MG TABLET PO SCH (17:38)
[2019-09-20] MEDS: Gabapentin 300 MG CAPSULE PO SCH (20:53)
[2019-09-20] MEDS: Magnesium Oxide 400 MG TABLET PO SCH (20:53)
[2019-09-20] MEDS: Apixaban 5 MG TABLET PO SCH (20:53)
[2019-09-20] MEDS: (Omega-3 Acid Ethyl Esters [Lovaza] 2 GM) PO SCH (20:56)
[2019-09-20] MEDS: Niacin (24 HR) 500 MG TAB.ER.24H PO SCH (20:57)
[2019-09-20] MEDS ORDERED: Insulin DETEMIR 100 UNIT/ML per UNIT SQ ONE (21:00)
[2019-09-20] MEDS: Budesonide/Formoterol 80/4.5 1 PUFF INH IH SCH (21:06)
[2019-09-20] MEDS ORDERED: Acetaminophen 325 MG TABLET PO PRN (22:23)
[2019-09-21] MEDS: Insulin LISPRO 300 UNITS/3 ML VIAL SQ SCH ×4 (07:27→20:08)
[2019-09-21] MEDS ORDERED: *HR* Dextrose 50 % in Water (Vial) 50 ML VIAL IVP PRN (08:00)
[2019-09-21] MEDS: Cyanocobalamin (B-12) 1,000 MCG TABLET PO SCH (08:00)
[2019-09-21] MEDS: Gabapentin 300 MG CAPSULE PO SCH ×2 (08:00→20:07)
[2019-09-21] MEDS: amLODIPine 5 MG TABLET PO SCH (08:00)
[2019-09-21] MEDS: Magnesium Oxide 400 MG TABLET PO SCH ×2 (08:00→20:07)
[2019-09-21] MEDS: Apixaban 5 MG TABLET PO SCH ×2 (08:01→20:07)
[2019-09-21] MEDS: (Omega-3 Acid Ethyl Esters [Lovaza] 2 GM) PO SCH ×2 (08:01→20:09)
[2019-09-21] MEDS: *HR* Metformin 500 MG TABLET PO SCH (08:01)
[2019-09-21] MEDS: Aspirin Enteric Coated 81 MG Tablet PO SCH (08:01)
[2019-09-21] MEDS: (Umeclidinium Bromide [Incruse Ellipta] 1 PUFF) IH SCH (08:01)
[2019-09-21 08:20] LABS: Basophils # 0.1 K/mcL (0.0-0.2); Basophils % 0.6 %; Eosinophils # 0.2 K/mcL (0.0-0.6); Eosinophils % 1.9 %; Hematocrit 37.5 % (37.5-50.1); Hemoglobin 12.7 g/dL (12.9-16.9); Immature Granulocytes % 0.8 % (0-4); Lymphocytes # 1.9 K/mcL (0.6-4.6); Lymphocytes % 23.3 %; Mean Corpuscular HGB Conc 33.9 g/dL (31.6-35.5); Mean Corpuscular Hemoglobin 30.5 pg (28.0-33.3); Mean Corpuscular Volume 90.1 fL (83.0-100.0); Mean Platelet Volume 9.8 fL (9.4-12.4); Monocytes # 0.5 K/mcL (0.0-1.3); Monocytes % 5.8 %; Neutrophils # 5.4 K/mcL (1.6-8.9); Platelet Count 253 K/mcL (140-400); Red Blood Count 4.16 M/mcL (4.19-5.50); Red Cell Distribution Width 14.1 % (11.5-14.5); Segmented Neutrophils % 67.6 %
[2019-09-21 08:28] LABS: INR 1.3; Prothrombin Time 14.7 Seconds (9.4-12.1)
[2019-09-21 08:30] LABS: Activated Partial Thrombo Time 50.4 Seconds (26.0-36.0)
[2019-09-21 08:35] LABS: Calcium 9.4 mg/dL (8.6-10.3); Potassium 4.4 mEq/L (3.5-5.1)
[2019-09-21] MEDS ORDERED: Lisinopril 20 MG TABLET PO SCH (09:00)
[2019-09-21] MEDS ORDERED: hydroCHLOROthiazide 25 MG TABLET PO SCH (09:00)
[2019-09-21] MEDS: Insulin DETEMIR 100 UNIT/ML X5UNITS SQ SCH ×2 (09:50→20:08)
[2019-09-21] MEDS: Budesonide/Formoterol 80/4.5 1 PUFF INH IH SCH ×2 (10:22→22:54)
[2019-09-21] MEDS: hydrALAZINE 25 MG TABLET PO SCH (16:34)
[2019-09-21] MEDS: *HR* OxyCODONE/APAP 5/325 TABLET PO PRN (20:07)
[2019-09-21] MEDS: Niacin (24 HR) 500 MG TAB.ER.24H PO SCH (20:07)
[2019-09-22] MEDS: hydrALAZINE 25 MG TABLET PO SCH ×3 (00:09→17:59)
[2019-09-22] MEDS: Budesonide/Formoterol 80/4.5 1 PUFF INH IH SCH ×2 (08:34→21:57)
[2019-09-22 08:50] LABS: BUN/Creatinine Ratio 34 (6-26); Blood Urea Nitrogen 41 mg/dL (6-20); Calcium 9.3 mg/dL (8.6-10.3); Carbon Dioxide 23 mEq/L (23-29); Chloride 106 mEq/L (98-107); Glucose 152 mg/dL (70-105); Osmolality,Calculated 301 (280-300); Potassium 4.2 mEq/L (3.5-5.1); Sodium 139 mEq/L (136-145); eGFR For African Americans > 60 (> 60); eGFR For Non-African Americans > 60 (> 60)
[2019-09-22] MEDS: amLODIPine 5 MG TABLET PO SCH (09:52)
[2019-09-22] MEDS: Magnesium Oxide 400 MG TABLET PO SCH ×2 (09:53→19:50)
[2019-09-22] MEDS: Apixaban 5 MG TABLET PO SCH ×2 (09:53→19:50)
[2019-09-22] MEDS: Aspirin Enteric Coated 81 MG Tablet PO SCH (09:53)
[2019-09-22] MEDS: Insulin LISPRO 300 UNITS/3 ML VIAL SQ SCH ×4 (09:54→19:51)
[2019-09-22] MEDS: Gabapentin 300 MG CAPSULE PO SCH ×2 (09:55→19:50)
[2019-09-22] MEDS: (Omega-3 Acid Ethyl Esters [Lovaza] 2 GM) PO SCH ×2 (09:55→19:53)
[2019-09-22] MEDS: Insulin DETEMIR 100 UNIT/ML X5UNITS SQ SCH ×2 (09:55→19:50)
[2019-09-22] MEDS: (Umeclidinium Bromide [Incruse Ellipta] 1 PUFF) IH SCH (09:56)
[2019-09-22] MEDS: Cyanocobalamin (B-12) 1,000 MCG TABLET PO SCH (09:56)
[2019-09-22] MEDS ORDERED: ALPRAZolam 0.25 MG TABLET PO ONE (18:20)
[2019-09-22] MEDS: Niacin (24 HR) 500 MG TAB.ER.24H PO SCH (19:50)
[2019-09-23] MEDS: hydrALAZINE 25 MG TABLET PO SCH ×4 (01:27→23:09)
[2019-09-23] MEDS: Budesonide/Formoterol 80/4.5 1 PUFF INH IH SCH ×2 (09:11→22:27)
[2019-09-23] MEDS: Cyanocobalamin (B-12) 1,000 MCG TABLET PO SCH (09:12)
[2019-09-23] MEDS: amLODIPine 5 MG TABLET PO SCH (09:12)
[2019-09-23] MEDS: Gabapentin 300 MG CAPSULE PO SCH ×2 (09:12→20:07)
[2019-09-23] MEDS: Magnesium Oxide 400 MG TABLET PO SCH ×2 (09:12→20:07)
[2019-09-23] MEDS: Aspirin Enteric Coated 81 MG Tablet PO SCH (09:13)
[2019-09-23] MEDS: Apixaban 5 MG TABLET PO SCH ×2 (09:13→20:07)
[2019-09-23] MEDS: (Omega-3 Acid Ethyl Esters [Lovaza] 2 GM) PO SCH ×2 (09:14→20:08)
[2019-09-23] MEDS: Insulin LISPRO 300 UNITS/3 ML VIAL SQ SCH ×4 (09:17→20:08)
[2019-09-23] MEDS: Insulin DETEMIR 100 UNIT/ML X5UNITS SQ SCH ×2 (09:18→20:08)
[2019-09-23] MEDS: (Umeclidinium Bromide [Incruse Ellipta] 1 PUFF) IH SCH (11:42)
[2019-09-23] MEDS: *HR* OxyCODONE/APAP 5/325 TABLET PO PRN ×2 (11:55→20:11)
[2019-09-23] MEDS: Niacin (24 HR) 500 MG TAB.ER.24H PO SCH (20:07)
[2019-09-24] MEDS: amLODIPine 5 MG TABLET PO SCH (07:57)
[2019-09-24] MEDS: Magnesium Oxide 400 MG TABLET PO SCH ×2 (07:57→21:21)
[2019-09-24] MEDS: Apixaban 5 MG TABLET PO SCH ×2 (07:58→21:21)
[2019-09-24] MEDS: *HR* OxyCODONE/APAP 5/325 TABLET PO PRN ×2 (07:58→21:21)
[2019-09-24] MEDS: Gabapentin 300 MG CAPSULE PO SCH ×2 (07:58→21:21)
[2019-09-24] MEDS: Aspirin Enteric Coated 81 MG Tablet PO SCH (07:58)
[2019-09-24] MEDS: Cyanocobalamin (B-12) 1,000 MCG TABLET PO SCH (07:58)
[2019-09-24] MEDS: hydrALAZINE 25 MG TABLET PO SCH ×2 (07:58→17:23)
[2019-09-24] MEDS: Insulin LISPRO 300 UNITS/3 ML VIAL SQ SCH ×4 (07:59→21:22)
[2019-09-24] MEDS: (Umeclidinium Bromide [Incruse Ellipta] 1 PUFF) IH SCH (08:00)
[2019-09-24] MEDS: (Omega-3 Acid Ethyl Esters [Lovaza] 2 GM) PO SCH ×2 (08:00→21:22)
[2019-09-24] MEDS: Budesonide/Formoterol 80/4.5 1 PUFF INH IH SCH ×2 (08:34→22:46)
[2019-09-24] MEDS: Insulin DETEMIR 100 UNIT/ML X5UNITS SQ SCH ×2 (08:56→21:22)
[2019-09-24] MEDS: Niacin (24 HR) 500 MG TAB.ER.24H PO SCH (21:22)
[2019-09-25] MEDS: hydrALAZINE 25 MG TABLET PO SCH ×3 (00:28→17:12)
[2019-09-25] MEDS: Apixaban 5 MG TABLET PO SCH ×2 (08:00→21:48)
[2019-09-25] MEDS: Magnesium Oxide 400 MG TABLET PO SCH ×2 (08:00→21:48)
[2019-09-25] MEDS: Gabapentin 300 MG CAPSULE PO SCH ×2 (08:01→21:48)
[2019-09-25] MEDS: amLODIPine 5 MG TABLET PO SCH (08:01)
[2019-09-25] MEDS: Insulin LISPRO 300 UNITS/3 ML VIAL SQ SCH ×4 (08:02→21:53)
[2019-09-25] MEDS: Cyanocobalamin (B-12) 1,000 MCG TABLET PO SCH (08:02)
[2019-09-25] MEDS: Aspirin Enteric Coated 81 MG Tablet PO SCH (08:02)
[2019-09-25] MEDS: (Omega-3 Acid Ethyl Esters [Lovaza] 2 GM) PO SCH ×2 (08:03→21:50)
[2019-09-25] MEDS: (Umeclidinium Bromide [Incruse Ellipta] 1 PUFF) IH SCH (08:03)
[2019-09-25] MEDS: Insulin DETEMIR 100 UNIT/ML X5UNITS SQ SCH ×2 (09:28→21:47)
[2019-09-25] MEDS: Budesonide/Formoterol 80/4.5 1 PUFF INH IH SCH ×2 (09:32→19:41)
[2019-09-25] MEDS ORDERED: (Dulaglutide [Trulicity] 0.75 MG) SQ SCH (14:41)
[2019-09-25] MEDS: *HR* OxyCODONE/APAP 5/325 TABLET PO PRN (21:48)
[2019-09-25] MEDS: Niacin (24 HR) 500 MG TAB.ER.24H PO SCH (21:52)
[2019-09-26] MEDS: hydrALAZINE 25 MG TABLET PO SCH ×3 (00:19→17:24)
[2019-09-26] MEDS ORDERED: Ondansetron ODT 4 MG TAB.RAPDIS SL PRN (00:49)
[2019-09-26 07:10] VITALS: BP 129/50
[2019-09-26] MEDS: Insulin LISPRO 300 UNITS/3 ML VIAL SQ SCH ×3 (07:41→17:25)
[2019-09-26] MEDS: Cyanocobalamin (B-12) 1,000 MCG TABLET PO SCH (09:39)
[2019-09-26] MEDS: Aspirin Enteric Coated 81 MG Tablet PO SCH (09:42)
[2019-09-26] MEDS: Gabapentin 300 MG CAPSULE PO SCH (09:42)
[2019-09-26] MEDS: Insulin DETEMIR 100 UNIT/ML X5UNITS SQ SCH (09:42)
[2019-09-26] MEDS: Apixaban 5 MG TABLET PO SCH (09:42)
[2019-09-26] MEDS: amLODIPine 5 MG TABLET PO SCH (09:42)
[2019-09-26] MEDS: Magnesium Oxide 400 MG TABLET PO SCH (09:42)
[2019-09-26] MEDS: (Umeclidinium Bromide [Incruse Ellipta] 1 PUFF) IH SCH (09:52)
[2019-09-26] MEDS: (Omega-3 Acid Ethyl Esters [Lovaza] 2 GM) PO SCH (09:52)
[2019-09-26] MEDS: Budesonide/Formoterol 80/4.5 1 PUFF INH IH SCH (10:39)
[2019-09-26] MEDS: *HR* OxyCODONE/APAP 5/325 TABLET PO PRN (17:24)
== END 2019-09-26 18:00 | DRG 57 ==
LOC: INPPIK 09-20 13:22
PROVIDERS: ADMIT Family Medicine; ATTEND Family Medicine

== ENCOUNTER 2020-02-05 11:18 | Inpatient (IN) ==
[2020-02-05] MEDS ORDERED: Nitroglycerin 0.4 MG TAB.SUBL SL PRN (11:34)
[2020-02-05] MEDS ORDERED: NON-FORMULARY MEDICATION 1 EACH EACH (Insulin Aspart [Novolog Flexpen] 0 UNIT) SQ SCH (12:00)
[2020-02-05] MEDS ORDERED: Dextrose Gel 15 GM/37.5 ML TUBE PO PRN ×2 (15:45)
[2020-02-05] MEDS ORDERED: *HR* Dextrose 50 % in Water (Vial) 50 ML VIAL IVP PRN (15:45)
[2020-02-05] MEDS ORDERED: D5% in Water 1,000 ML IVC PRN (15:45)
[2020-02-05] MEDS: Cyanocobalamin (B-12) 1,000 MCG/ML VIAL SQ SCH (16:54)
[2020-02-05] MEDS: gemfibroziL 600 MG TABLET PO SCH (16:56)
[2020-02-05] MEDS: *HR* Metformin 500 MG TABLET PO SCH (16:56)
[2020-02-05] MEDS: Insulin LISPRO 300 UNITS/3 ML VIAL SQ SCH ×2 (16:56→21:15)
[2020-02-05] MEDS: Gabapentin 300 MG CAPSULE PO SCH (20:02)
[2020-02-05] MEDS: Insulin DETEMIR 100 UNIT/ML X5UNITS SQ SCH (20:03)
[2020-02-05] MEDS ORDERED: NON-FORMULARY MEDICATION 1 EACH EACH (Fluticasone/Salmeterol [Advair 250-50 Diskus] 1 PUFF IH SCH (21:00)
[2020-02-05] MEDS ORDERED: Budesonide/Formoterol 80/4.5 1 PUFF INH IH SCH (22:00)
[2020-02-05] MEDS: Budesonide/Formoterol 80/4.5 1 PUFF INH IH SCH (23:15)
[2020-02-06 06:38] LABS: Basophils # 0.1 K/mcL (0.0-0.2); Basophils % 0.6 %; Eosinophils # 0.3 K/mcL (0.0-0.6); Eosinophils % 4.2 %; Hematocrit 35.4 % (37.5-50.1); Immature Granulocytes % 0.5 % (0-4); Lymphocytes % 24.6 %; Mean Corpuscular HGB Conc 33.9 g/dL (31.6-35.5); Mean Corpuscular Hemoglobin 30.5 pg (28.0-33.3); Mean Corpuscular Volume 90.1 fL (83.0-100.0); Mean Platelet Volume 10.7 fL (9.4-12.4); Monocytes # 0.5 K/mcL (0.0-1.3); Monocytes % 6.6 %; Neutrophils # 5.1 K/mcL (1.6-8.9); Platelet Count 247 K/mcL (140-400); Red Blood Count 3.93 M/mcL (4.19-5.50); Red Cell Distribution Width 13.2 % (11.5-14.5); Segmented Neutrophils % 63.5 %; White Blood Count 8.1 K/mcL (4.3-11.1)
[2020-02-06 07:00] LABS: Alanine Aminotransferase 15 Units/L (7-52); Albumin 3.3 g/dL (3.5-5.7); Albumin/Globulin Ratio 1.1 (1.1-2.2); Alkaline Phosphatase 103 Units/L (34-104); Aspartate Amino Transferase 22 Units/L (13-39); BUN/Creatinine Ratio 20 (6-26); Bilirubin,Total 0.4 mg/dL (0.3-1.0); Blood Urea Nitrogen 16 mg/dL (6-20); Calcium 8.8 mg/dL (8.6-10.3); Carbon Dioxide 27 mEq/L (23-29); Chloride 105 mEq/L (98-107); Globulin 2.9 g/dL (2.4-3.5); Glucose 107 mg/dL (70-105); Osmolality,Calculated 294 (280-300); Potassium 3.9 mEq/L (3.5-5.1); Sodium 141 mEq/L (136-145); Total Protein 6.2 g/dL (6.4-8.9); eGFR For African Americans > 60 (> 60); eGFR For Non-African Americans > 60 (> 60)
[2020-02-06] MEDS: Insulin LISPRO 300 UNITS/3 ML VIAL SQ SCH ×4 (07:36→21:34)
[2020-02-06] MEDS: Cyanocobalamin (B-12) 1,000 MCG/ML VIAL SQ SCH (08:58)
[2020-02-06] MEDS: Insulin DETEMIR 100 UNIT/ML X5UNITS SQ SCH ×2 (08:58→21:34)
[2020-02-06] MEDS ORDERED: amLODIPine 5 MG TABLET PO SCH (09:00)
[2020-02-06] MEDS: Budesonide/Formoterol 80/4.5 1 PUFF INH IH SCH ×2 (09:02→22:10)
[2020-02-06] MEDS: UMECLIDINIUM IH SCH (09:02)
[2020-02-06] MEDS: gemfibroziL 600 MG TABLET PO SCH ×2 (09:15→17:01)
[2020-02-06] MEDS: Furosemide 40 MG TABLET PO SCH (09:15)
[2020-02-06] MEDS: Gabapentin 300 MG CAPSULE PO SCH ×2 (09:16→21:34)
[2020-02-06] MEDS: lisinopriL 20 MG TABLET PO SCH (09:16)
[2020-02-06] MEDS: *HR* Metformin 500 MG TABLET PO SCH ×2 (09:16→17:01)
[2020-02-06] MEDS: Aspirin Enteric Coated 81 MG Tablet PO SCH (09:16)
[2020-02-06] MEDS: amLODIPine 5 MG TABLET PO SCH (09:16)
[2020-02-06] MEDS: hydroCHLOROthiazide 25 MG TABLET PO SCH (09:16)
[2020-02-06] MEDS: Apixaban 5 MG TABLET PO SCH (09:16)
[2020-02-06] MEDS: TRULICITY 0.75 MG SQ SCH (09:18)
[2020-02-07] MEDS: Insulin LISPRO 300 UNITS/3 ML VIAL SQ SCH ×4 (08:16→20:49)
[2020-02-07] MEDS: UMECLIDINIUM IH SCH (08:40)
[2020-02-07] MEDS: Budesonide/Formoterol 80/4.5 1 PUFF INH IH SCH ×2 (08:40→21:05)
[2020-02-07] MEDS: Insulin DETEMIR 100 UNIT/ML X5UNITS SQ SCH ×2 (09:13→20:49)
[2020-02-07] MEDS: Apixaban 5 MG TABLET PO SCH (09:14)
[2020-02-07] MEDS: *HR* Metformin 500 MG TABLET PO SCH ×2 (09:14→17:24)
[2020-02-07] MEDS: Aspirin Enteric Coated 81 MG Tablet PO SCH (09:14)
[2020-02-07] MEDS: gemfibroziL 600 MG TABLET PO SCH ×2 (09:14→17:24)
[2020-02-07] MEDS: hydroCHLOROthiazide 25 MG TABLET PO SCH (09:14)
[2020-02-07] MEDS: Gabapentin 300 MG CAPSULE PO SCH ×2 (09:14→20:48)
[2020-02-07] MEDS: amLODIPine 5 MG TABLET PO SCH (09:14)
[2020-02-07] MEDS: Furosemide 40 MG TABLET PO SCH (09:14)
[2020-02-07] MEDS: lisinopriL 20 MG TABLET PO SCH (09:14)
[2020-02-07] MEDS: Cyanocobalamin (B-12) 1,000 MCG/ML VIAL SQ SCH (09:15)
[2020-02-08] MEDS: Insulin LISPRO 300 UNITS/3 ML VIAL SQ SCH ×4 (07:58→20:11)
[2020-02-08] MEDS: amLODIPine 5 MG TABLET PO SCH (08:11)
[2020-02-08] MEDS: lisinopriL 20 MG TABLET PO SCH (08:11)
[2020-02-08] MEDS: gemfibroziL 600 MG TABLET PO SCH ×2 (08:11→18:19)
[2020-02-08] MEDS: Apixaban 5 MG TABLET PO SCH (08:11)
[2020-02-08] MEDS: Furosemide 40 MG TABLET PO SCH (08:11)
[2020-02-08] MEDS: hydroCHLOROthiazide 25 MG TABLET PO SCH (08:11)
[2020-02-08] MEDS: *HR* Metformin 500 MG TABLET PO SCH ×2 (08:11→18:19)
[2020-02-08] MEDS: Aspirin Enteric Coated 81 MG Tablet PO SCH (08:11)
[2020-02-08] MEDS: Gabapentin 300 MG CAPSULE PO SCH ×2 (08:11→20:11)
[2020-02-08] MEDS: Cyanocobalamin (B-12) 1,000 MCG/ML VIAL SQ SCH (08:12)
[2020-02-08 10:16] LABS: Basophils # 0.1 K/mcL (0.0-0.2); Basophils % 0.7 %; Eosinophils # 0.3 K/mcL (0.0-0.6); Eosinophils % 3.5 %; Hematocrit 40.7 % (37.5-50.1); Hemoglobin 13.5 g/dL (12.9-16.9); Immature Granulocytes % 0.9 % (0-4); Lymphocytes # 2.2 K/mcL (0.6-4.6); Lymphocytes % 24.9 %; Mean Corpuscular HGB Conc 33.2 g/dL (31.6-35.5); Mean Corpuscular Hemoglobin 30.1 pg (28.0-33.3); Mean Corpuscular Volume 90.8 fL (83.0-100.0); Mean Platelet Volume 11.2 fL (9.4-12.4); Monocytes # 0.6 K/mcL (0.0-1.3); Monocytes % 6.3 %; Neutrophils # 5.7 K/mcL (1.6-8.9); Platelet Count 333 K/mcL (140-400); Red Blood Count 4.48 M/mcL (4.19-5.50); Red Cell Distribution Width 13.3 % (11.5-14.5); Segmented Neutrophils % 63.7 %; White Blood Count 8.9 K/mcL (4.3-11.1)
[2020-02-08 10:29] LABS: BUN/Creatinine Ratio 30 (6-26); Blood Urea Nitrogen 31 mg/dL (6-20); Calcium 9.3 mg/dL (8.6-10.3); Carbon Dioxide 26 mEq/L (23-29); Chloride 101 mEq/L (98-107); Glucose 141 mg/dL (70-105); Osmolality,Calculated 293 (280-300); Potassium 4.6 mEq/L (3.5-5.1); Sodium 137 mEq/L (136-145); eGFR For African Americans > 60 (> 60); eGFR For Non-African Americans > 60 (> 60)
[2020-02-08] MEDS: Insulin DETEMIR 100 UNIT/ML X5UNITS SQ SCH ×2 (10:54→20:14)
[2020-02-08] MEDS: Budesonide/Formoterol 80/4.5 1 PUFF INH IH SCH ×2 (10:56→20:46)
[2020-02-08] MEDS: UMECLIDINIUM IH SCH (10:57)
[2020-02-09] MEDS: Insulin LISPRO 300 UNITS/3 ML VIAL SQ SCH ×4 (07:19→20:12)
[2020-02-09] MEDS: Gabapentin 300 MG CAPSULE PO SCH ×2 (08:44→20:12)
[2020-02-09] MEDS: *HR* Metformin 500 MG TABLET PO SCH ×2 (08:44→16:31)
[2020-02-09] MEDS: Cyanocobalamin (B-12) 1,000 MCG/ML VIAL SQ SCH (08:44)
[2020-02-09] MEDS: hydroCHLOROthiazide 25 MG TABLET PO SCH (08:45)
[2020-02-09] MEDS: gemfibroziL 600 MG TABLET PO SCH ×2 (08:45→16:32)
[2020-02-09] MEDS: Apixaban 5 MG TABLET PO SCH (08:45)
[2020-02-09] MEDS: Furosemide 40 MG TABLET PO SCH (08:45)
[2020-02-09] MEDS: Aspirin Enteric Coated 81 MG Tablet PO SCH (08:45)
[2020-02-09] MEDS: lisinopriL 20 MG TABLET PO SCH (08:48)
[2020-02-09] MEDS: amLODIPine 5 MG TABLET PO SCH (08:48)
[2020-02-09] MEDS: Insulin DETEMIR 100 UNIT/ML X5UNITS SQ SCH ×2 (08:52→20:12)
[2020-02-09] MEDS: UMECLIDINIUM IH SCH (10:29)
[2020-02-09] MEDS: Budesonide/Formoterol 80/4.5 1 PUFF INH IH SCH ×2 (10:32→22:57)
[2020-02-10] MEDS: Budesonide/Formoterol 80/4.5 1 PUFF INH IH SCH ×2 (07:48→21:09)
[2020-02-10] MEDS: UMECLIDINIUM IH SCH (07:48)
[2020-02-10] MEDS: *HR* Metformin 500 MG TABLET PO SCH ×2 (08:03→16:28)
[2020-02-10] MEDS: amLODIPine 5 MG TABLET PO SCH (08:04)
[2020-02-10] MEDS: Apixaban 5 MG TABLET PO SCH (08:04)
[2020-02-10] MEDS: hydroCHLOROthiazide 25 MG TABLET PO SCH (08:04)
[2020-02-10] MEDS: Aspirin Enteric Coated 81 MG Tablet PO SCH (08:04)
[2020-02-10] MEDS: Gabapentin 300 MG CAPSULE PO SCH ×2 (08:04→19:49)
[2020-02-10] MEDS: Furosemide 40 MG TABLET PO SCH (08:04)
[2020-02-10] MEDS: Cyanocobalamin (B-12) 1,000 MCG/ML VIAL SQ SCH (08:04)
[2020-02-10] MEDS: lisinopriL 20 MG TABLET PO SCH (08:04)
[2020-02-10] MEDS: gemfibroziL 600 MG TABLET PO SCH ×2 (08:04→16:28)
[2020-02-10] MEDS: Insulin DETEMIR 100 UNIT/ML X5UNITS SQ SCH ×2 (08:05→19:50)
[2020-02-10] MEDS: Insulin LISPRO 300 UNITS/3 ML VIAL SQ SCH ×4 (08:05→19:44)
[2020-02-11 07:04] LABS: Basophils % 0.4 %; Eosinophils # 0.3 K/mcL (0.0-0.6); Eosinophils % 3.9 %; Hematocrit 35.1 % (37.5-50.1); Hemoglobin 11.6 g/dL (12.9-16.9); Immature Granulocytes % 0.6 % (0-4); Lymphocytes # 1.8 K/mcL (0.6-4.6); Lymphocytes % 21.6 %; Mean Corpuscular Hemoglobin 30.1 pg (28.0-33.3); Mean Corpuscular Volume 90.9 fL (83.0-100.0); Mean Platelet Volume 10.7 fL (9.4-12.4); Monocytes # 0.5 K/mcL (0.0-1.3); Neutrophils # 5.5 K/mcL (1.6-8.9); Platelet Count 272 K/mcL (140-400); Red Blood Count 3.86 M/mcL (4.19-5.50); Red Cell Distribution Width 13.4 % (11.5-14.5); Segmented Neutrophils % 67.5 %; White Blood Count 8.2 K/mcL (4.3-11.1)
[2020-02-11 07:26] LABS: BUN/Creatinine Ratio 42 (6-26); Blood Urea Nitrogen 47 mg/dL (6-20); Calcium 9.3 mg/dL (8.6-10.3); Carbon Dioxide 25 mEq/L (23-29); Chloride 104 mEq/L (98-107); Glucose 99 mg/dL (70-105); Osmolality,Calculated 298 (280-300); Potassium 4.9 mEq/L (3.5-5.1); Sodium 138 mEq/L (136-145); eGFR For African Americans > 60 (> 60); eGFR For Non-African Americans > 60 (> 60)
[2020-02-11] MEDS: Cyanocobalamin (B-12) 1,000 MCG TABLET PO SCH (07:58)
[2020-02-11] MEDS: gemfibroziL 600 MG TABLET PO SCH ×2 (07:58→16:52)
[2020-02-11] MEDS: Gabapentin 300 MG CAPSULE PO SCH ×2 (07:58→19:48)
[2020-02-11] MEDS: *HR* Metformin 500 MG TABLET PO SCH ×2 (07:58→16:51)
[2020-02-11] MEDS: amLODIPine 5 MG TABLET PO SCH (07:58)
[2020-02-11] MEDS: Insulin LISPRO 300 UNITS/3 ML VIAL SQ SCH ×4 (07:59→20:49)
[2020-02-11] MEDS: Aspirin Enteric Coated 81 MG Tablet PO SCH (07:59)
[2020-02-11] MEDS: hydroCHLOROthiazide 25 MG TABLET PO SCH (07:59)
[2020-02-11] MEDS: lisinopriL 20 MG TABLET PO SCH (07:59)
[2020-02-11] MEDS: Furosemide 40 MG TABLET PO SCH (07:59)
[2020-02-11] MEDS: Apixaban 5 MG TABLET PO SCH (07:59)
[2020-02-11] MEDS: UMECLIDINIUM IH SCH (09:14)
[2020-02-11] MEDS: Budesonide/Formoterol 80/4.5 1 PUFF INH IH SCH ×2 (09:14→22:58)
[2020-02-11] MEDS: Insulin DETEMIR 100 UNIT/ML X5UNITS SQ SCH ×2 (12:19→19:48)
[2020-02-12] MEDS: Insulin LISPRO 300 UNITS/3 ML VIAL SQ SCH ×4 (07:35→19:43)
[2020-02-12] MEDS: gemfibroziL 600 MG TABLET PO SCH ×2 (08:16→17:35)
[2020-02-12] MEDS: Apixaban 5 MG TABLET PO SCH (08:16)
[2020-02-12] MEDS: amLODIPine 5 MG TABLET PO SCH (08:16)
[2020-02-12] MEDS: lisinopriL 20 MG TABLET PO SCH (08:16)
[2020-02-12] MEDS: Furosemide 40 MG TABLET PO SCH (08:16)
[2020-02-12] MEDS: Aspirin Enteric Coated 81 MG Tablet PO SCH (08:16)
[2020-02-12] MEDS: hydroCHLOROthiazide 25 MG TABLET PO SCH (08:17)
[2020-02-12] MEDS: *HR* Metformin 500 MG TABLET PO SCH ×2 (08:17→17:35)
[2020-02-12] MEDS: Cyanocobalamin (B-12) 1,000 MCG TABLET PO SCH (08:17)
[2020-02-12] MEDS: Gabapentin 300 MG CAPSULE PO SCH ×2 (08:17→19:43)
[2020-02-12] MEDS: Insulin DETEMIR 100 UNIT/ML X5UNITS SQ SCH ×2 (09:19→19:43)
[2020-02-12] MEDS: UMECLIDINIUM IH SCH (09:41)
[2020-02-12] MEDS: Budesonide/Formoterol 80/4.5 1 PUFF INH IH SCH ×2 (10:02→20:38)
[2020-02-13] MEDS: Insulin LISPRO 300 UNITS/3 ML VIAL SQ SCH ×4 (07:47→20:55)
[2020-02-13] MEDS: hydroCHLOROthiazide 25 MG TABLET PO SCH (08:04)
[2020-02-13] MEDS: Gabapentin 300 MG CAPSULE PO SCH ×2 (08:04→20:55)
[2020-02-13] MEDS: Cyanocobalamin (B-12) 1,000 MCG TABLET PO SCH (08:05)
[2020-02-13] MEDS: Aspirin Enteric Coated 81 MG Tablet PO SCH (08:05)
[2020-02-13] MEDS: lisinopriL 20 MG TABLET PO SCH (08:05)
[2020-02-13] MEDS: *HR* Metformin 500 MG TABLET PO SCH ×2 (08:05→16:07)
[2020-02-13] MEDS: gemfibroziL 600 MG TABLET PO SCH ×2 (08:05→16:07)
[2020-02-13] MEDS: Apixaban 5 MG TABLET PO SCH (08:05)
[2020-02-13] MEDS: Furosemide 40 MG TABLET PO SCH (08:05)
[2020-02-13] MEDS: amLODIPine 5 MG TABLET PO SCH (08:05)
[2020-02-13] MEDS: Insulin DETEMIR 100 UNIT/ML X5UNITS SQ SCH ×2 (08:50→20:55)
[2020-02-13] MEDS: Budesonide/Formoterol 80/4.5 1 PUFF INH IH SCH ×2 (10:45→21:13)
[2020-02-13] MEDS: UMECLIDINIUM IH SCH (10:46)
[2020-02-13] MEDS: TRULICITY 0.75 MG SQ SCH (12:22)
[2020-02-14 06:21] LABS: Hematocrit 34.4 % (37.5-50.1); Hemoglobin 11.7 g/dL (12.9-16.9); Mean Corpuscular Hemoglobin 30.4 pg (28.0-33.3); Mean Corpuscular Volume 89.4 fL (83.0-100.0); Mean Platelet Volume 10.9 fL (9.4-12.4); Platelet Count 248 K/mcL (140-400); Red Blood Count 3.85 M/mcL (4.19-5.50); Red Cell Distribution Width 13.2 % (11.5-14.5); White Blood Count 7.4 K/mcL (4.3-11.1)
[2020-02-14 06:45] LABS: BUN/Creatinine Ratio 44 (6-26); Blood Urea Nitrogen 41 mg/dL (6-20); Calcium 9.1 mg/dL (8.6-10.3); Carbon Dioxide 24 mEq/L (23-29); Chloride 105 mEq/L (98-107); Glucose 145 mg/dL (70-105); Osmolality,Calculated 305 (280-300); Potassium 3.9 mEq/L (3.5-5.1); Sodium 141 mEq/L (136-145); eGFR For African Americans > 60 (> 60); eGFR For Non-African Americans > 60 (> 60)
[2020-02-14] MEDS: Insulin LISPRO 300 UNITS/3 ML VIAL SQ SCH ×4 (07:40→19:42)
[2020-02-14] MEDS: gemfibroziL 600 MG TABLET PO SCH ×2 (08:20→16:34)
[2020-02-14] MEDS: amLODIPine 5 MG TABLET PO SCH (08:20)
[2020-02-14] MEDS: *HR* Metformin 500 MG TABLET PO SCH ×2 (08:20→16:34)
[2020-02-14] MEDS: hydroCHLOROthiazide 25 MG TABLET PO SCH (08:20)
[2020-02-14] MEDS: lisinopriL 20 MG TABLET PO SCH (08:20)
[2020-02-14] MEDS: Gabapentin 300 MG CAPSULE PO SCH ×2 (08:20→19:42)
[2020-02-14] MEDS: Apixaban 5 MG TABLET PO SCH (08:21)
[2020-02-14] MEDS: Aspirin Enteric Coated 81 MG Tablet PO SCH (08:21)
[2020-02-14] MEDS: Cyanocobalamin (B-12) 1,000 MCG TABLET PO SCH (08:21)
[2020-02-14] MEDS: Furosemide 40 MG TABLET PO SCH (08:21)
[2020-02-14] MEDS: Insulin DETEMIR 100 UNIT/ML X5UNITS SQ SCH ×2 (08:23→19:42)
[2020-02-14] MEDS: Budesonide/Formoterol 80/4.5 1 PUFF INH IH SCH ×2 (09:53→21:38)
[2020-02-14] MEDS: UMECLIDINIUM IH SCH (10:02)
[2020-02-15] MEDS: Insulin LISPRO 300 UNITS/3 ML VIAL SQ SCH ×4 (07:24→20:22)
[2020-02-15] MEDS: *HR* Metformin 500 MG TABLET PO SCH ×2 (07:42→17:17)
[2020-02-15] MEDS: Aspirin Enteric Coated 81 MG Tablet PO SCH (07:42)
[2020-02-15] MEDS: lisinopriL 20 MG TABLET PO SCH (07:43)
[2020-02-15] MEDS: Gabapentin 300 MG CAPSULE PO SCH ×2 (07:43→20:22)
[2020-02-15] MEDS: amLODIPine 5 MG TABLET PO SCH (07:43)
[2020-02-15] MEDS: Cyanocobalamin (B-12) 1,000 MCG TABLET PO SCH (07:43)
[2020-02-15] MEDS: hydroCHLOROthiazide 25 MG TABLET PO SCH (07:43)
[2020-02-15] MEDS: gemfibroziL 600 MG TABLET PO SCH ×2 (07:43→17:17)
[2020-02-15] MEDS: Apixaban 5 MG TABLET PO SCH (07:43)
[2020-02-15] MEDS: Furosemide 40 MG TABLET PO SCH (07:43)
[2020-02-15] MEDS: Insulin DETEMIR 100 UNIT/ML X5UNITS SQ SCH ×2 (09:03→20:23)
[2020-02-15] MEDS: UMECLIDINIUM IH SCH (09:12)
[2020-02-15] MEDS: Budesonide/Formoterol 80/4.5 1 PUFF INH IH SCH ×2 (09:12→22:24)
[2020-02-16 06:22] VITALS: BP 133/50
[2020-02-16] MEDS: Budesonide/Formoterol 80/4.5 1 PUFF INH IH SCH (07:40)
[2020-02-16] MEDS: UMECLIDINIUM IH SCH (07:44)
[2020-02-16] MEDS: lisinopriL 20 MG TABLET PO SCH (08:07)
[2020-02-16] MEDS: Apixaban 5 MG TABLET PO SCH (08:07)
[2020-02-16] MEDS: *HR* Metformin 500 MG TABLET PO SCH (08:07)
[2020-02-16] MEDS: Aspirin Enteric Coated 81 MG Tablet PO SCH (08:07)
[2020-02-16] MEDS: Cyanocobalamin (B-12) 1,000 MCG TABLET PO SCH (08:07)
[2020-02-16] MEDS: amLODIPine 5 MG TABLET PO SCH (08:07)
[2020-02-16] MEDS: Furosemide 40 MG TABLET PO SCH (08:07)
[2020-02-16] MEDS: hydroCHLOROthiazide 25 MG TABLET PO SCH (08:07)
[2020-02-16] MEDS: gemfibroziL 600 MG TABLET PO SCH (08:08)
[2020-02-16] MEDS: Gabapentin 300 MG CAPSULE PO SCH (08:08)
[2020-02-16] MEDS: Insulin LISPRO 300 UNITS/3 ML VIAL SQ SCH (08:08)
[2020-02-16] MEDS: Insulin DETEMIR 100 UNIT/ML X5UNITS SQ SCH (08:44)
[2020-02-16] MEDS ORDERED: Lactobacillus 1 EACH CAP.SPRINK PO SCH (09:00)
== END 2020-02-16 10:26 | disposition home health service (06) | DRG 945 ==
LOC: INPPIK 11:23
PROVIDERS: ADMIT Family Medicine; ATTEND Family Medicine